=== PATIENT | female | born 1975 | race Asian ===

== ENCOUNTER 2018-08-05 08:36 | Emergency (ER) | payer BC, OTHER ==
[~2018-08-05] VITALS: Ht 157.5 cm; Wt 65.8 kg
[2018-08-05] MEDS ORDERED: HYDR25TA4 PO (08:49)
--- NOTE | 2018-08-05 09:09 | NUR ---
PT A/OX4, PRESENTS TO THE ER C/O PAINLESS LUMP ON ANTERIOR NECK THAT SHE NOTICED 08/02/18. PT DENIES PAIN, SOB, DYSPHAGIA. VSS. PT DENIES C/P, DIZZINESS, N/V/D, HEADACHE.
--- NOTE | 2018-08-05 09:17 | NUR ---
SEN WADE AT BEDSIDE FOR MSE.
--- NOTE | 2018-08-05 09:54 | NUR ---
US TECH AT BEDSIDE.
--- NOTE | 2018-08-05 10:03 | NUR ---
SEN WADE AT BEDSIDE FOR PT UPDATE.
--- NOTE | 2018-08-05 10:15 | NUR ---
Patient discharged to home in stable conditon. Written and verbal after care instructions given. Patient verbalizes understanding of instructions. ALL BELONGINGS W/ PT. PT SELF-AMBULATED W/O DIFFICULTY.
[2018-08-05 10:16] VITALS: BP 131/90
== END 2018-08-05 10:17 | disposition home or self-care (01) ==
LOC: ER 08:36
DX: E04.1 Nontoxic single thyroid nodule (principal); Z79.899 Other long term (current) drug therapy
CPT/HCPCS: A4663